=== PATIENT | female | born 2000 | race Caucasian/White ===

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

== ENCOUNTER 2024-06-06 06:39 | Day surgery (SDC) | payer BC ==
[2024-06-06] MEDS ORDERED: Lidocaine 2% 5 ML SDV ONE (06:48)
[2024-06-06] MEDS ORDERED: Midazolam 1 MG/ML 2 ML SDV ONE (06:48)
[2024-06-06] MEDS ORDERED: Propofol 200 MG/20 ML SDV ONE ×4 (06:48)
[2024-06-06] MEDS ORDERED: Sodium Chloride 0.9% 10 ML Syringe FLUSH SCH (07:00)
[2024-06-06] MEDS ORDERED: Sodium Chloride 0.9% 10 ML Syringe FLUSH PRN (07:00)
[2024-06-06] MEDS: Lactated Ringers 1,000 ML IV SCH (07:00)
[2024-06-06] MEDS ORDERED: fentaNYL 100 MCG/2 ML SDV ONE (07:02)
[2024-06-06 08:49] VITALS: PULSE 78
[2024-06-06 09:28] VITALS: BP 128/78
== END 2024-06-06 09:20 | disposition home or self-care (01) ==
LOC: JD.SDS 06:39
PROVIDERS: ATTEND Family Medicine
DX: K29.50 Unspecified chronic gastritis without bleeding (principal); K31.9 Disease of stomach and duodenum, unspecified; K20.90 Esophagitis, unspecified without bleeding; K92.1 Melena; K64.8 Other hemorrhoids; E66.9 Obesity, unspecified; Z79.899 Other long term (current) drug therapy; Z68.30 Body mass index [BMI] 30.0-30.9, adult; Z68.43 Body mass index [BMI] 50.0-59.9, adult
CPT/HCPCS: 43239; 45380; 81025; J2250; J2704; J3010; J7120; 00813; J3490